=== PATIENT | female | born 1940 | race Caucasian/White ===

== ENCOUNTER 2019-02-02 08:02 | Inpatient (IN) ==
--- NOTE | 2019-01-05 15:41 | PAT Medication Instructions ---
Medication Instructions Date of Service January 05, 2019 Home Medications glimepiride 1 mg PO BIDM metformin 500 mg PO BIDM omeprazole 20 mg PO QAM DO NOT take the morning of surgery glimepiride 1 mg PO BIDM metformin 500 mg PO BIDM Take morning of surgery With a small sip of water, OTHERWISE NOTHING TO EAT OR DRINK AFTER MIDNIGHT: omeprazole 20 mg PO QAM Other Notes If you have any questions please call us at [phone] or [phone] or [phone] or [phone]
--- NOTE | 2019-01-08 13:57 | Anesthesiology Consultation ---
Date of Service January 08, 2019 Assessment & Plan (1) Encounter for pre-operative examination: - PCP: 01/10/19: "No history of cardiorespiratory disease. Here ASA is 3. Perioperatively beta blockers are not indicated, and there are no other preoperative recommendations at this time." - Check BSG AM DOS - Hx lumbar XRT: discussed SAB vs. GA. Chart Review Chart Review: Acceptable Risk for Surgery and Patient seen in Pre Admission Testing Teaching & Discussion Pre-Anesthesia Teaching/Discussion Notes: Instructed NPO after midnight before surgery,except medications with 15 cc of water. Medication instructions provided according to the PAT guidelines. History Surgery Operation Date: 02/02/19 12:05 Proposed Procedures p Right Total Knee Arthroplasty - Zachary Reid MD Height/Weight Height: 5 ft Weight: 77.9 kg Allergies Allergy/AdvReac Type Severity Reaction Status Date / Time hydrocodone [From Vicodin] AdvReac NAUSEA AND Verified 01/02/19 13:40 VOMITING Medications Home Medications Medication Instructions Recorded Confirmed Last Taken glimepiride 1 mg PO BIDM 01/02/19 01/02/19 Unknown metformin 500 mg PO BIDM 01/02/19 01/02/19 Unknown omeprazole 20 mg PO QAM 01/02/19 01/02/19 Unknown Past Medical History Medical History Diabetes mellitus, type 2 NIDDM Heartburn CONTROLLED ON PPI Hiatal hernia Hx of non-Hodgkin's lymphoma SPINAL S/P CHEMO/RADIATION; RECURRENCE S/P CHEMO; "IN REMISSION" Obesity Osteoarthritis Exercise / Class Metabolic Activity II 4-5 Yardwork/Stairs/Walk up hill Past Family History Family History Father Family history of diabetes mellitus Brother Family history of diabetes mellitus Sister Family history of diabetes mellitus Past Surgical History Surgical History History of X2 History of back surgery NO HARDWARE PER PATIENT History of esophagogastroduodenoscopy (EGD) History of partial hysterectomy Hx of cholecystectomy Past Anesthesia History No Hx of Anesthesia Complications and No Family Hx of Anesthesia Complications History of PONV No Hx of PONV and No Hx of Motion Sickness Social History Smoking Status: Never smoker Do You Dip or Chew Tobacco: No Hx Alcohol Use: Yes alcohol intake frequency: holidays/special occasions only Hx Substance Use: No Review of Systems Heartburn controlled on PPI. Patient denies chest pain, shortness of breath, dyspnea on exertion, cough, wheezing, palpitations. Physical Exam Vital Signs VITALS BP 182/80 (136/68 on manual recheck on right) P 78 TEMP 97.8 SP02 95%RA RESP 16 PHYSICAL Full neck and c-spine range of motion. Full TMJ range of motion. TMD 3 finger breaths Mallampati Score 3 Dentition: several missing teeth, full dentures on lower Lungs: clear throughout to auscultation Cardiac: regular rate and rhythm, no murmurs noted Spine: normal Carotid arteries: negative bruit Extremities: no edema Testing Laboratory Results 01/08/19 14:23 01/08/19 14:23 PT 10.0 Seconds (9.0-12.0) 01/08/19 14:23 INR 1.0 (0.9-1.1) 01/08/19 14:23 APTT 28.8 Seconds (21.0-31.0) 01/08/19 14:23 Urine Color Yellow 01/08/19 14:23 Urine Appearance Cloudy (Clear) A 01/08/19 14:23 Urine pH 7.0 (4.5-7.5) 01/08/19 14:23 Ur Specific [place] 1.012 (1.000-1.030) 01/08/19 14:23 Urine Protein Negative (Negative) 01/08/19 14:23 Urine Glucose (UA) Negative (Negative) 01/08/19 14:23 Urine Ketones Negative (Negative) 01/08/19 14:23 Urine Nitrite Positive (Negative) A 01/08/19 14:23 Ur Leukocyte Esterase 3+ (Negative) H 01/08/19 14:23 Urine WBC (Auto) 10-30 /hpf (0-5) H 01/08/19 14:23 Urine RBC (Auto) 0-4 /hpf (0-4) 01/08/19 14:23 U Hyaline Cast (Auto) 0 /lpf (0-5) 01/08/19 14:23 U Epithel Cells (Auto) 10-20 /lpf (0-5) H 01/08/19 14:23 Urine Bacteria (Auto) 4+ (Negative) H 01/08/19 14:23 Blood Type O Negative 01/08/19 14:23 Antibody Screen NEGATIVE 01/08/19 14:23 01/08/19 14:23 Urine Culture - Final Urine,Clean Catch Escherichia coli *Surgeon made aware of abnormal UA* 12/13/18 HGBA1C 5.7% Electrocardiogram Date: 01/08/19 NSR at 61bpm. NS TWA. Chest X-Ray Date: 01/08/19 Findings: + NAD Mild right hemidiaphragmatic elevation.
--- NOTE | 2019-01-08 15:02 | XRay Report ---
XR chest Pre-admission PA/Lat HISTORY: 78 years-old Female pat preoperative exam. No acute chest complaints COMPARISON: None available TECHNIQUE: PA and lateral views of the chest FINDINGS: Cardiomediastinal and hilar silhouettes are within normal limits. Mild right hemidiaphragmatic elevat ion. There is no pneumothorax, pleural effusion, focal airspace consolidation or overt pulmonary janet a. Degenerative changes of the shoulders and spine. Cholecystectomy. IMPRESSION: No acute process. The above report was generated using voice recognition software. It may contain grammatical, syntax o r spelling errors. Electronically signed by: Ehsan Cortes M.D. 01/08/2019 3:01 PM
[2019-01-08 15:40] LABS: Basophils # (auto) 0.03 K/uL (0-0.2); Basophils % (auto) 0.5 %; Eosinophils # (auto) 0.15 K/uL (0-0.5); Eosinophils % (auto) 2.4 %; Hematocrit (blood only) 36.9 % (37-47); Hemoglobin 12.3 g/dL (12.0-16.0); Lymphocytes # (auto) 1.85 K/uL (1.2-3.4); Mean Corpuscular Hgb Conc 33.3 g/dL (32-36); Monocytes # (auto) 0.37 K/uL (0.11-0.59); Monocytes % (auto) 5.8 %; Neutrophils # (auto) 3.98 K/uL (1.4-6.5); Neutrophils % (auto) 62.3 %; Platelet Count 194 K/uL (130-400); RDW Coefficient of Variation 13.3 % (11.5-14.5); RDW Standard Deviation 43.8 fL (36.4-46.3); White Blood Count 6.38 K/uL (4.8-10.8)
[2019-01-08 15:43] LABS: Albumin Level 3.4 gm/dl (3.4-5.0); BUN Creatinine Ratio 10.4 (10-20); Calcium 9.4 mg/dl (8.5-10.1); Creatinine Clr Calc Pharmacy 37.8 ml/min; Est GFR (African American) 52.4; Est GFR (Non-African American) 45.2
[2019-01-08 15:44] LABS: Appearance Urine Cloudy (Clear); Bacteria Urine Automated 4+ (Negative); Bilirubin Urine Negative (Negative); Blood Urine Negative (Negative); Cast Urine Automated 0 /lpf (0-5); Color Urine Yellow; Glucose Urine UA Negative (Negative); Ketones Urine Negative (Negative); Leukocyte Esterase Urine 3+ (Negative); Nitrite Urine Positive (Negative); Protein Urine Negative (Negative); RBC Urine Automated 0-4 /hpf (0-4); Specific Gravity Urine 1.012 (1.000-1.030); Urobilinogen Urine Negative (Negative)
[2019-01-08 15:57] LABS: Partial Thromboplastin Ratio 1.1; Partial Thromboplastin Time 28.8 Seconds (21.0-31.0)
--- NOTE | 2019-01-25 21:00 | History & Physical Report ---
Date of Service January 25, 2019 Assessment & Plan (1) Primary osteoarthritis of right knee: Patient has arthritic changes throughout her knee along with osteonecrosis of the medial femoral condyle. Treatment options discussed. She has failed conservative therapy. She would like to proceed with surgical management. Risks, benefits and alternatives to surgery including but not limited to infection, DVT, pain, stiffness, need for revision surgery, damage to blood vessels, damage to nerves, PE, , were discussed with the patient and they wish to proceed. Plan will be for right total knee arthroplasty. Plan will be for aspirin 81mg BID x 30 days for DVT prophylaxis, plans on inpatient rehab vs senior living facility placement upon discharge from the hospital. All questions were answered. History of Present Illness Chief Complaint: Right knee pain Primary Care Provider: Angel Luis Brooks 78 year old female with PMHx significant for DM2, GERD, history of non-hodgkin's lymphoma in remission presents with chronic right knee pain. Her pain is affecting her ability to carry out daily activities. She previously underwent arthroscopy in 2018 by another provider. Since that time she has been having worsening knee pain. Updated MRI demonstrates osteonecrosis of her medial femoral condyle with an unstable appearing fragment. She has arthritic changes throughout her knee. She has failed conservative measures including NSAIDs and PT. She would like to proceed with right knee replacement. Patient denies headaches, sweats, fevers, chills, double vision, blurred vision, cough, sore throat, dysphagia, chest pain, sob, wheezing, n/v/d/c, numbness, tingling, fatigue, urinary symptoms, mood disorders. ROS positive for right knee pain and stiffness. Allergies Allergy/AdvReac Type Severity Reaction Status Date / Time hydrocodone [From Vicodin] AdvReac NAUSEA AND Verified 01/02/19 13:40 VOMITING Home Medications Home Medications Medication Instructions Recorded Confirmed Type glimepiride 1 mg PO BIDM 01/02/19 01/02/19 History metformin 500 mg PO BIDM 01/02/19 01/02/19 History omeprazole 20 mg PO QAM 01/02/19 01/02/19 History Past Med/Surg History Medical History Diabetes mellitus, type 2 NIDDM Heartburn CONTROLLED ON PPI Hiatal hernia Hx of non-Hodgkin's lymphoma SPINAL S/P CHEMO/RADIATION; RECURRENCE S/P CHEMO; "IN REMISSION" Obesity Osteoarthritis Surgical History History of X2 History of back surgery NO HARDWARE PER PATIENT History of esophagogastroduodenoscopy (EGD) History of partial hysterectomy Hx of cholecystectomy Family History Father Family history of diabetes mellitus Brother Family history of diabetes mellitus Sister Family history of diabetes mellitus Social History Preferred Language: Nepali Communication Ability: Effective Beliefs That Will Affect Care: None Current Living Situation: Alone Other Information That Helps Us Care for You: Yes (LIVES IN TWO HOUSE) Feels Safe at Home: Yes Safety Concerns: Feels Safe At This Time Smoking Status: Never smoker Do You Dip or Chew Tobacco: No Second Hand Exposure: Yes (OCAASIONALLY) Hx Alcohol Use: Yes Hx Substance Use: No Review of Systems All systems reviewed & are unremarkable except as noted in HPI & below Physical Exam Constitutional: well developed and well nourished; no acute distress Eyes: PERRL, conjunctivae normal, anicteric sclerae ENMT: external ear and nose normal, oropharynx normal Neck: trachea midline, no thyromegaly Respiratory: normal respiratory effort, lungs clear to auscultation Cardiovascular: RRR, no murmur, no edema Musculoskeletal: Right knee-Mild effusion, ROM 0-135, ligamentously stable. Medial joint line tenderness with positive Sandie's. Skin: no rashes, warm and dry Neurologic: patellar DTR's 2+ bilat, sensation intact Psychiatric: A+Ox3, euthymic affect Results & Data Laboratory Results Lab Results 01/08/19 01/08/19 01/08/19 Range/Units 14:23 14:23 14:23 WBC 6.38 (4.8-10.8) K/uL RBC 4.10 L (4.2-5.4) M/uL Hgb 12.3 (12.0-16.0) g/dL Hct 36.9 L (37-47) % MCV 90.0 (80-100) fL MCH 30.0 (25-34) pg MCHC 33.3 (32-36) g/dL RDW Std Deviation 43.8 (36.4-46.3) fL RDW Coeff of Emanuel 13.3 (11.5-14.5) % Plt Count 194 (130-400) K/uL MPV 10.0 (7.4-10.4) fL Immature Gran % (Auto) 0.0 % Neut % (Auto) 62.3 % Lymph % (Auto) 29.0 % [place] % (Auto) 5.8 % Eos % (Auto) 2.4 % Baso % (Auto) 0.5 % Immature Gran # (Auto) 0.00 (0.00-0.02) K/uL Neut # (Auto) 3.98 (1.4-6.5) K/uL Lymph # (Auto) 1.85 (1.2-3.4) K/uL Brewster # (Auto) 0.37 (0.11-0.59) K/uL Eos # (Auto) 0.15 (0-0.5) K/uL Baso # (Auto) 0.03 (0-0.2) K/uL PT 10.0 (9.0-12.0) Seconds INR 1.0 (0.9-1.1) APTT 28.8 (21.0-31.0) Seconds PTT Ratio 1.1 Sodium 135 L (136-145) mmol/L Potassium 5.0 (3.5-5.1) mmol/L Chloride 102 (98-107) mmol/L Carbon Dioxide 27 (21-32) mmol/L Anion Gap 6.0 (3-11) BUN 12 (7-18) mg/dl Creatinine 1.17 (0.6-1.2) mg/dl Est Cr Clr Drug Dosing 37.8 ml/min Est GFR ( Amer) 52.4 Est GFR (Non-Af Amer) 45.2 BUN/Creatinine Ratio 10.4 (10-20) Glucose 147 H (70-99) mg/dl Calcium 9.4 (8.5-10.1) mg/dl Albumin 3.4 (3.4-5.0) gm/dl Urine Color Urine Appearance (Clear) Urine pH (4.5-7.5) Ur Specific [place] (1.000-1.030) Urine Protein (Negative) Urine Glucose (UA) (Negative) Urine Ketones (Negative) Urine Blood (Negative) Urine Nitrite (Negative) Urine Bilirubin (Negative) Urine Urobilinogen (Negative) Ur Leukocyte Esterase (Negative) Urine WBC (Auto) (0-5) /hpf Urine RBC (Auto) (0-4) /hpf U Hyaline Cast (Auto) (0-5) /lpf U Epithel Cells (Auto) (0-5) /lpf Urine Bacteria (Auto) (Negative) Blood Type Antibody Screen 01/08/19 01/08/19 Range/Units 14:23 14:23 WBC (4.8-10.8) K/uL RBC (4.2-5.4) M/uL Hgb (12.0-16.0) g/dL Hct (37-47) % MCV (80-100) fL MCH (25-34) pg MCHC (32-36) g/dL RDW Std Deviation (36.4-46.3) fL RDW Coeff of Emanuel (11.5-14.5) % Plt Count (130-400) K/uL MPV (7.4-10.4) fL Immature Gran % (Auto) % Neut % (Auto) % Lymph % (Auto) % [place] % (Auto) % Eos % (Auto) % Baso % (Auto) % Immature Gran # (Auto) (0.00-0.02) K/uL Neut # (Auto) (1.4-6.5) K/uL Lymph # (Auto) (1.2-3.4) K/uL [place] # (Auto) (0.11-0.59) K/uL Eos # (Auto) (0-0.5) K/uL Baso # (Auto) (0-0.2) K/uL PT (9.0-12.0) Seconds INR (0.9-1.1) APTT (21.0-31.0) Seconds PTT Ratio Sodium (136-145) mmol/L Potassium (3.5-5.1) mmol/L Chloride (98-107) mmol/L Carbon Dioxide (21-32) mmol/L Anion Gap (3-11) BUN (7-18) mg/dl Creatinine (0.6-1.2) mg/dl Est Cr Clr Drug Dosing ml/min Est GFR ( Amer) Est GFR (Non-Af Amer) BUN/Creatinine Ratio (10-20) Glucose (70-99) mg/dl Calcium (8.5-10.1) mg/dl Albumin (3.4-5.0) gm/dl Urine Color Yellow Urine Appearance Cloudy A (Clear) Urine pH 7.0 (4.5-7.5) Ur Specific [place] 1.012 (1.000-1.030) Urine Protein Negative (Negative) Urine Glucose (UA) Negative (Negative) Urine Ketones Negative (Negative) Urine Blood Negative (Negative) Urine Nitrite Positive A (Negative) Urine Bilirubin Negative (Negative) Urine Urobilinogen Negative (Negative) Ur Leukocyte Esterase 3+ H (Negative) Urine WBC (Auto) 10-30 H (0-5) /hpf Urine RBC (Auto) 0-4 (0-4) /hpf U Hyaline Cast (Auto) 0 (0-5) /lpf U Epithel Cells (Auto) 10-20 H (0-5) /lpf Urine Bacteria (Auto) 4+ H (Negative) Blood Type O Negative Antibody Screen NEGATIVE Diagnostic Findings MRI and radiographs obtained of right knee which demonstrates osteonecrosis of the medial femoral condyle, the fragment appears unstable. Arthritic changes of the medial femoral condyle and patellofemoral joint.
[~2019-02-02 08:02] MED LIST: ACETAMINOPHEN 500 MG TAB PO SCH; BUPIVACAINE 0.5 % 5 MG/1 ML PF 10ML VIAL ONE; BUPIVACAINE/EPINEPHRINE 0.25% 1:200,000 30 ML VIAL ONE; CEFAZOLIN 2000MG 2,000 MG/15 ML SYR IV SCH; CeleBREX 200 MG CAP PO SCH; DEXAMETHASONE SOD INJ 4 MG/ML VIAL ONE; FAMOTIDINE 20 MG TAB PO SCH; LIDOCAINE HCL 2% 2 ML VIAL/AMP(20MG/ML) INFIL ONE; LR 500ML BOLUS IV SCH; LR 500ML BOLUS, THEN 15ML/HR IV SCH; METOCLOPRAMIDE HCL 10 MG TABLET PO SCH; MIDAZOLAM HCL 1 MG/ML 2ML VIAL ONE; PROPOFOL IV EMULSION 10 MG/ML 20 ML VIAL IV ONE; ROPIVACAINE 0.5% HCL/PF 150 MG, BUPIVACAINE 0.5% MPF 30 ML, EPINEPHrine 30MG/30ML (OR U... INSTIL SCH; TRANEXAMIC ACID 1,000 MG **IV Intra-op IV SCH; TRANEXAMIC ACID 1,000 MG **IV Pre-op IV SCH; dexAMETHasone 4 MG TAB PO SCH; fentaNYL citrate 100 MCG/2 ML VIAL ONE
[2019-02-02] MEDS ORDERED: ORTHO JOINT ANESTHETIC ONE (08:40)
[2019-02-02] MEDS ORDERED: BACITRACIN INJ 50,000 UNIT VIAL ONE (08:40)
--- NOTE | 2019-02-02 08:42 | History & Physical Bridge Note ---
Date of Service February 02, 2019 History & Physical Bridge Note I have examined the patient, reviewed the History & Physical and in the interval since the performance of the History & Physical I have noted the following changes of clinical significance: no changes noted
[2019-02-02] MEDS ORDERED: PROPOFOL IV EMULSION 10 MG/ML 20 ML VIAL IV ONE ×2 (08:48→11:02)
[2019-02-02] MEDS ORDERED: LIDOCAINE HCL 2% 2 ML VIAL/AMP(20MG/ML) INFIL ONE ×2 (08:48→11:02)
[2019-02-02] MEDS ORDERED: MIDAZOLAM HCL 1 MG/ML 2ML VIAL ONE (08:49)
[2019-02-02] MEDS ORDERED: fentaNYL citrate 100 MCG/2 ML VIAL ONE (08:49)
--- NOTE | 2019-02-02 10:58 | Operative Report ---
Post Operative Report Pre & Post Diagnosis Operation Date: 02/02/19 10:20 Pre-Op Diagnosis: Unilateral Primary Osteoarthritis, Right Knee, OCD medial femoral condyle Post-Op Diagnosis: Unilateral Primary Osteoarthritis, Right Knee, OCD medial femoral condyle Procedure Operation Date: 02/02/19 10:20 Actual Procedures p Right Total Knee Arthroplasty(Right) - Zachary Reid MD Surgeon Zachary Reid MD Repairer Screen Crusher Too Osborne PA-C Estimated Blood Loss 20 Findings Consistent with Post-Op Diagnosis Specimens Bone and tissue Drains 2 Hemovac Anesthesia Type Spinal MAC Complications none Disposition Accompanied Patient To Recovery: No Disposition: Recovery Room Indications The patient is a 78-year-old female who has developed a unstable on osteochondral defect of the medial femoral condyle with concomitant arthritic change in the medial compartment. She is failed conservative measures including injection, anti-inflammatories, rehab. Given her age I recommended a total knee arthroplasty for treatment both of the arthritic change as well as for the unstable medial femoral condyle OCD Description of Procedure Risks benefits and alternatives of surgery including but not limited to infection, DVT, pain, stiffness, need for surgery, damage to blood vessels, damage to nerves or risks of anesthesia were discussed with the patient and they wished to proceed. The patient was identified and the laterality was confirmed and marked. They received a preoperative antibiotic as well as a spinal anesthetic and an abductor canal block. A well-padded tourniquet was applied and then the limb was prepped and draped in standard manner with ChloraPrep. The limb was exsanguinated and the tourniquet was inflated. I made a standard anterior incision. I sharply incised the skin then utilized Bovie electrocautery to achieve hemostasis. I made a medial parapatellar arthrotomy and mobilized the patella laterally. I then excised the anterior horns of the medial and lateral meniscus as well as the infrapatellar fat pad. I elevated a portion of the MCL off of the tibia. I then pinned into place a patient-matched distal femoral cutting guide and made my distal femoral resection. I then pinned into place the 5 in 1 femoral cutting guide. I made my anterior, posterior and chamfer cuts. I then excised the cruciates and the remaining portions of the menisci. I then pinned into place a patient- matched tibial cutting guide and made my tibial resection. I then pinned into place the tibial plate a utilizing alignment ifrah to confirm rotation. I then cut for the post. Utilizing a lamina duplicating machine mechanic and I then removed posterior osteophytes off the femur. I then placed a trial femur into position and cut for the trochlear component. I then sequentially trialed to size the polyethylene until there was good soft tissue balancing and range of motion. I then prepared the patella with a freehand cut utilizing sagittal saw. I sized and drilled for the patella. There was good tracking to the patella no lateral release was needed. All the trial components were removed. The deep tissues were anesthetized with an ortho mix solution. Then with Simplex HV with gentamicin cement, I cemented my definitive components. Definitive components, [employer]hew [place] 2: Femur 4 Tibia 3 Poly 9 Patella 32 oval A betadine soak was performed. A deep drain was placed. The arthrotomy was closed with interrupted #1 Vicryl suture subcutaneous tissue was closed with interrupted 2-0 Vicryl suture. The skin was closed with with nilay. An Acticoat and Corrine dressing were placed. Sterile dressings were applied. All needle and sponge counts were correct at the end of the procedure patient was transferred to the PACU in stable condition without apparent complication. The PA-C was necessary for assistance with procedure for assistance in positioning, prepping, draping, retraction and closure. I attest to the content of the Intraoperative Record and any orders documented therein. Any exceptions are noted below.
[2019-02-02] MEDS ORDERED: ONDANSETRON INJ 2 MG/ML 2 ML VIAL ONE (11:02)
[2019-02-02] MEDS ORDERED: fentaNYL citrate 100 MCG/2 ML VIAL IV PRN (11:37)
[2019-02-02] MEDS ORDERED: PROMETHAZINE HCL 6.25 MG in SODIUM CHLORIDE 0.9% 50 ML IV PRN (11:37)
[2019-02-02] MEDS ORDERED: ONDANSETRON INJ 2 MG/ML 2 ML VIAL IV PRN ×2 (11:37→13:29)
[2019-02-02] MEDS ORDERED: ATROPINE SULFATE 0.1 MG/ML 10ML SYR IV PRN (11:37)
[2019-02-02] MEDS ORDERED: ePHEDrine sulfate 50 MG/ML AMP IV PRN (11:37)
--- NOTE | 2019-02-02 12:21 | XRay Report ---
RIGHT KNEE 2 VIEWS History: Right total knee arthroplasty. Degenerative arthritis. Postop. FINDINGS: The patient is status post a right total knee arthroplasty. The hardware is intact. No frac ture or dislocation. Skin nilay and surgical drains are in place. IMPRESSION: Right total knee arthroplasty. No evidence for hardware complication. Electronically signed by: Nicholas Berry M.D. 02/02/2019 12:20 PM
[2019-02-02] MEDS ORDERED: HYDROmorphone INJ 0.5 MG/0.5 ML SYR IV PRN (13:29)
[2019-02-02] MEDS ORDERED: BISACODYL 10 MG SUPP PR PRN (13:29)
[2019-02-02] MEDS ORDERED: ALUMINUM/MAGNESIUM SUSP 30 ML UDC PO PRN (13:29)
[2019-02-02] MEDS ORDERED: MAGNESIUM HYDROXIDE SUSP 30 ML UDC PO PRN (13:29)
[2019-02-02] MEDS ORDERED: NALOXONE HCL 0.4 MG/1 ML VIAL/CARP IV PRN (13:29)
--- NOTE | 2019-02-02 13:54 | Anesthesiology Progress Note ---
Date of Service February 02, 2019 Anesthesia Post Procedure Vital Signs Vital Signs: Temp Pulse Pulse Resp BP Pulse Ox 02/02/19 13:10 54 L 20 128/64 97 02/02/19 13:00 79 16 142/64 H 98 02/02/19 12:50 36.3 C L 56 L 17 137/68 98 02/02/19 12:40 60 19 128/48 L 93 02/02/19 12:30 53 L 17 122/59 L 97 02/02/19 12:20 56 L 19 123/66 98 02/02/19 12:10 36.3 C L 54 L 13 123/54 L 99 02/02/19 12:00 62 9 L 143/61 H 99 02/02/19 11:50 61 23 127/56 L 100 02/02/19 11:40 60 16 130/54 L 100 02/02/19 11:33 36.1 C L 66 17 141/63 H 100 02/02/19 08:54 36.8 C 63 20 162/56 H 96 Transfer of Care Handoff Completed per policy Notes Mental Status: alert / awake / arousable Patient Amnestic to Procedure: Yes Nausea / Vomiting: adequately controlled Pain: adequately controlled Airway Patency, RR, SpO2: stable & adequate BP & HR: stable & adequate Hydration State: stable & adequate Neuraxial Anesthesia: was administered and sensory block is resolving Anesthetic Complications: no major complications apparent
[2019-02-02] MEDS ORDERED: SODIUM CHLORIDE 0.9% 1000ML 1,000 ML IV SCH (14:00)
[2019-02-02] MEDS ORDERED: PHARMACY GLYCEMIC MGMT CONSULT PRN (14:25)
[2019-02-02] MEDS ORDERED: NovoLIN-N (NPH) PER UNIT CHARGE SQ ONE (15:00)
--- NOTE | 2019-02-02 15:22 | Pharmacy Report ---
Glycemic Control Consultation - Date of Service February 02, 2019 - Scope Scope: Glycemic Pharmacist consulted by Too Osborne on 02/02/19 for glycemic control and to write orders per [facility] inpatient glycemic control protocol - Objective Weight: 77.292 kg Accuchecks BSG (last 24hrs): 02/02/19 02/02/19 08:47 12:08 POC Glucose 110 H 129 H - Recent Pertinent Medications Outpatient Anti-diabetic Regimen: * Metformin 500 mg BID * Glimepiride 1 mg BID * A1c = ordered for 02/03/19 with AM labs Risk Factors for Insulin Resistance: * Steroids: Dexamethasone 8 mg PO and 4 mg IV preop. * Infection: Ancef 1 gm IV q8h x 2 doses post op. * IVF: NS @ 100 ml/hr * Recent Surgery: R TKA - 02/02/19 * Diet: T2DM - Assessment & Plan Assessment & Plan: ASSESSMENT: * 78 y/o F who is postop R TKA today. Patient with Type 2 diabetes maintained on oral Metformin and Glimepiride at home. * Oral agents are not recommended for inpatient use d/t drug interactions, changing PO intake, and difficulty titrating for acute hyper/hypoglycemia. ADA recommends re-initiating outpatient oral agents 1-2 days prior to discharge if/when appropriate if they were held on admission. * Will hold oral agents for admission and utilize SQ basal bolus insulin regimen which is the recommended regimen for inpatient glycemic control. Will initiate weight based insulin dosing for insulin ayde patient and titrate based on BSG trends. * Based on lunch BSG, which was only 129, weight based stress of ~2 was used for the NPH dose of 30 units this afternoon. * NPH at HS based on scale. If BSG greater than 180, then will give 10 units of NPH. * Novolog parameters were ordered based on weight based stress of 3. PLAN FOR INPATIENT GLYCEMIC CONTROL: * Holding outpatient oral diabetes medications * Basal insulin * NPH 30 units SQ this afternoon then HS based on scale as below: - if BSG less than 180 = give 0 units - if BSG 180 or greater = give 10 units * Bolus insulin * NovoLog per scale ACHS or Q6hrs while NPO * Goal Range: Low 120 mg/dL - High 150 mg/dL * Correction Factor: 20 mg/dL/unit * Nutritional / Prandial insulin per carb ratio of 1 unit per 7 grams CHO consumed * Please note that the plan above was derived based on current level of insulin resistance and hospital stress. These recommendations are appropriate for inpatient admission only. Plan of care upon discharge will need to be reassessed to avoid potential outpatient hypo/hyperglycemia. Thank you.
[2019-02-02] MEDS ORDERED: GLIMEPIRIDE 2 MG TAB PO SCH (17:00)
[2019-02-02] MEDS: FERROUS GLUCONATE 324 MG TAB PO SCH (17:47)
[2019-02-02] MEDS: ACETAMINOPHEN 500 MG TAB PO SCH (17:47)
[2019-02-02] MEDS: INSULIN ASPART 100 UNITS/ML 3 ML PEN SC SCH ×2 (17:48→21:10)
[2019-02-02] MEDS: CEFAZOLIN 1000MG 1,000 MG/7.5 ML SYR IV SCH (18:11)
[2019-02-02] MEDS: OXYCODONE HCL IR 5 MG TAB (IMMEDIATE RELEASE) PO PRN (20:05)
[2019-02-02] MEDS ORDERED: NovoLIN-N (NPH) PER UNIT CHARGE SQ SCH (21:00)
[2019-02-02] MEDS: DOCUSATE SODIUM 100 MG CAP PO SCH (21:03)
[2019-02-02] MEDS: ASPIRIN 81 MG ECTAB PO SCH (21:04)
[2019-02-02] MEDS: SENNA 8.6 MG TAB PO SCH (21:05)
[2019-02-03] MEDS: INSULIN ASPART 100 UNITS/ML 3 ML PEN SC SCH ×6 (01:19→21:07)
[2019-02-03] MEDS: CEFAZOLIN 1000MG 1,000 MG/7.5 ML SYR IV SCH (02:33)
[2019-02-03] MEDS: ACETAMINOPHEN 500 MG TAB PO SCH ×3 (05:47→21:05)
[2019-02-03 07:46] LABS: Hematocrit (blood only) 30.9 % (37-47); Hemoglobin 10.6 g/dL (12.0-16.0); Mean Corpuscular Hgb Conc 34.3 g/dL (32-36); Mean Corpuscular Volume 86.3 fL (80-100); Mean Platelet Volume 9.8 fL (7.4-10.4); Platelet Count 159 K/uL (130-400); RDW Coefficient of Variation 12.5 % (11.5-14.5); RDW Standard Deviation 39.8 fL (36.4-46.3); Red Blood Count 3.58 M/uL (4.2-5.4); White Blood Count 11.46 K/uL (4.8-10.8)
[2019-02-03 08:11] LABS: Estimated Average Glucose 134 mg/dl; Hemoglobin A1C 6.3 % (4.5-5.6)
[2019-02-03 08:17] LABS: Est GFR (African American) 50.8; Est GFR (Non-African American) 43.9; Potassium 4.8 mmol/L (3.5-5.1)
[2019-02-03 08:18] LABS: BUN Creatinine Ratio 16.3 (10-20); Calcium 8.7 mg/dl (8.5-10.1); Creatinine Clr Calc Pharmacy 36.7 ml/min
[2019-02-03] MEDS: ASPIRIN 81 MG ECTAB PO SCH ×2 (08:26→20:19)
[2019-02-03] MEDS: MULTIVITAMIN TAB PO SCH (08:26)
[2019-02-03] MEDS: FERROUS GLUCONATE 324 MG TAB PO SCH ×2 (08:26→17:07)
[2019-02-03] MEDS: OXYCODONE HCL IR 5 MG TAB (IMMEDIATE RELEASE) PO PRN (08:26)
[2019-02-03] MEDS: PANTOprazole 40 MG TAB PO SCH (08:26)
[2019-02-03] MEDS: DOCUSATE SODIUM 100 MG CAP PO SCH ×2 (08:26→20:19)
--- NOTE | 2019-02-03 08:32 | Orthopedic Progress Note ---
Date of Service February 03, 2019 Assessment & Plan (1) Status post right knee replacement: 78 yo female stable POD #1 s/p right TKA 1. Med management 2. DVT prophylaxis- ASA, SCDs 3. PT/OT 4. D/C planning- pt interested in [facility] rehab Subjective Pt resting in bed, pain controlled, denies complaints Physical Exam Physical Exam: Toes mobile, N/V/I, dressing and drain in place, GONZALES in place Results & Data Vital Signs (Past 12 Hours) Vital Signs Temp Pulse Pulse Resp BP Pulse Ox 02/03/19 06:55 36.6 C 53 L 18 142/71 H 95 02/03/19 03:41 36.1 C L 50 L 18 146/71 H 97 02/02/19 23:19 36.2 C L 51 L 17 129/71 96 Laboratory Results 02/03/19 02/03/19 02/03/19 Range/Units 08:01 07:28 07:28 WBC (4.8-10.8) K/uL RBC (4.2-5.4) M/uL Hgb (12.0-16.0) g/dL Hct (37-47) % MCV (80-100) fL MCH (25-34) pg MCHC (32-36) g/dL RDW Std Deviation (36.4-46.3) fL RDW Coeff of Emanuel (11.5-14.5) % Plt Count (130-400) K/uL MPV (7.4-10.4) fL Sodium 130 L (136-145) mmol/L Potassium 4.8 (3.5-5.1) mmol/L Chloride 100 (98-107) mmol/L Carbon Dioxide 23 (21-32) mmol/L Anion Gap 7.0 (3-11) BUN 20 H (7-18) mg/dl Creatinine 1.20 (0.6-1.2) mg/dl Est Cr Clr Drug Dosing 36.7 ml/min Est GFR ( Amer) 50.8 Est GFR (Non-Af Amer) 43.9 BUN/Creatinine Ratio 16.3 (10-20) Glucose 142 H (70-99) mg/dl POC Glucose 145 H (70-99) Estimat Average Glucose 134 mg/dl Hemoglobin A1c 6.3 H (4.5-5.6) % Calcium 8.7 (8.5-10.1) mg/dl 02/03/19 02/03/19 02/03/19 Range/Units 07:28 03:40 00:00 WBC 11.46 H (4.8-10.8) K/uL RBC 3.58 L (4.2-5.4) M/uL Hgb 10.6 L (12.0-16.0) g/dL Hct 30.9 L (37-47) % MCV 86.3 (80-100) fL MCH 29.6 (25-34) pg MCHC 34.3 (32-36) g/dL RDW Std Deviation 39.8 (36.4-46.3) fL RDW Coeff of Emanuel 12.5 (11.5-14.5) % Plt Count 159 (130-400) K/uL MPV 9.8 (7.4-10.4) fL Sodium (136-145) mmol/L Potassium (3.5-5.1) mmol/L Chloride (98-107) mmol/L Carbon Dioxide (21-32) mmol/L Anion Gap (3-11) BUN (7-18) mg/dl Creatinine (0.6-1.2) mg/dl Est Cr Clr Drug Dosing ml/min Est GFR ( Amer) Est GFR (Non-Af Amer) BUN/Creatinine Ratio (10-20) Glucose (70-99) mg/dl POC Glucose 113 H 148 H (70-99) Estimat Average Glucose mg/dl Hemoglobin A1c (4.5-5.6) % Calcium (8.5-10.1) mg/dl 02/02/19 02/02/19 02/02/19 Range/Units 20:38 17:32 12:08 WBC (4.8-10.8) K/uL RBC (4.2-5.4) M/uL Hgb (12.0-16.0) g/dL Hct (37-47) % MCV (80-100) fL MCH (25-34) pg MCHC (32-36) g/dL RDW Std Deviation (36.4-46.3) fL RDW Coeff of Emanuel (11.5-14.5) % Plt Count (130-400) K/uL MPV (7.4-10.4) fL Sodium (136-145) mmol/L Potassium (3.5-5.1) mmol/L Chloride (98-107) mmol/L Carbon Dioxide (21-32) mmol/L Anion Gap (3-11) BUN (7-18) mg/dl Creatinine (0.6-1.2) mg/dl Est Cr Clr Drug Dosing ml/min Est GFR ( Amer) Est GFR (Non-Af Amer) BUN/Creatinine Ratio (10-20) Glucose (70-99) mg/dl POC Glucose 231 H 258 H 129 H (70-99) Estimat Average Glucose mg/dl Hemoglobin A1c (4.5-5.6) % Calcium (8.5-10.1) mg/dl 02/02/19 Range/Units 08:47 WBC (4.8-10.8) K/uL RBC (4.2-5.4) M/uL Hgb (12.0-16.0) g/dL Hct (37-47) % MCV (80-100) fL MCH (25-34) pg MCHC (32-36) g/dL RDW Std Deviation (36.4-46.3) fL RDW Coeff of Emanuel (11.5-14.5) % Plt Count (130-400) K/uL MPV (7.4-10.4) fL Sodium (136-145) mmol/L Potassium (3.5-5.1) mmol/L Chloride (98-107) mmol/L Carbon Dioxide (21-32) mmol/L Anion Gap (3-11) BUN (7-18) mg/dl Creatinine (0.6-1.2) mg/dl Est Cr Clr Drug Dosing ml/min Est GFR ( Amer) Est GFR (Non-Af Amer) BUN/Creatinine Ratio (10-20) Glucose (70-99) mg/dl POC Glucose 110 H (70-99) Estimat Average Glucose mg/dl Hemoglobin A1c (4.5-5.6) % Calcium (8.5-10.1) mg/dl
[2019-02-03] MEDS ORDERED: METFORMIN HCL 500 MG TAB PO SCH (17:00)
[2019-02-03] MEDS: SENNA 8.6 MG TAB PO SCH (20:19)
[2019-02-04] MEDS: OXYCODONE HCL IR 5 MG TAB (IMMEDIATE RELEASE) PO PRN ×2 (00:32→14:21)
[2019-02-04] MEDS: ACETAMINOPHEN 500 MG TAB PO SCH ×3 (05:57→21:27)
[2019-02-04] MEDS: MULTIVITAMIN TAB PO SCH (08:16)
[2019-02-04] MEDS: DOCUSATE SODIUM 100 MG CAP PO SCH ×2 (08:16→21:27)
[2019-02-04] MEDS: PANTOprazole 40 MG TAB PO SCH (08:16)
[2019-02-04] MEDS: ASPIRIN 81 MG ECTAB PO SCH ×2 (08:16→21:27)
[2019-02-04] MEDS: FERROUS GLUCONATE 324 MG TAB PO SCH ×2 (08:16→17:34)
[2019-02-04] MEDS: INSULIN ASPART 100 UNITS/ML 3 ML PEN SC SCH ×4 (08:18→20:39)
--- NOTE | 2019-02-04 09:01 | Pharmacy Report ---
Pharmacy Glycemic Short Note 2 - Date of Service February 04, 2019 - Glycemic Short BSG Results (Last 24 hours): 02/03/19 02/03/19 02/03/19 12:07 17:16 20:42 POC Glucose 206 H 127 H 185 H 02/04/19 08:04 POC Glucose 101 H ASSESSMENT: * BSGs with reasonable control over the previous 24hrs: [phone]. She did have some hyperglycemia with lunch yesterday, likely 2/2 to carb-heavy breakfast. No acute changes in insulin requirements are anticipated. PLAN FOR INPATIENT GLYCEMIC CONTROL: * Hold outpatient oral diabetes medications * Basal insulin * none indicated at this point in time * Bolus insulin * NovoLog per scale ACHS or Q6hrs while NPO * Goal Range: Low 120 mg/dL - High 150 mg/dL * Correction Factor: 20 mg/dL/unit * Nutritional / Prandial insulin per carb ratio of 1 unit per 7 grams CHO consumed
--- NOTE | 2019-02-04 09:24 | Orthopedic Progress Note ---
Date of Service February 04, 2019 Assessment & Plan (1) Status post right knee replacement: 78 yo female stable POD #2 s/p right TKA 1. Med management 2. DVT prophylaxis- ASA, SCDs 3. PT/OT 4. D/C planning- referral made to [facility] rehab, insurance approval won't be before Tuesday Subjective Pt resting in bed, pain controlled, denies complaints Physical Exam Physical Exam: GONZALES dressing in place, toes mobile, NVI, calves soft, nontender Results & Data Vital Signs (Past 12 Hours) Vital Signs Temp Pulse Pulse Resp BP Pulse Ox 02/04/19 07:14 36.3 C L 53 L 16 138/68 99 02/03/19 23:23 36.4 C L 50 L 17 123/56 L 97 Laboratory Results 02/04/19 02/03/19 02/03/19 Range/Units 08:04 20:42 17:16 POC Glucose 101 H 185 H 127 H (70-99) 02/03/19 Range/Units 12:07 POC Glucose 206 H (70-99)
[2019-02-04] MEDS: SENNA 8.6 MG TAB PO SCH (21:27)
[2019-02-05] MEDS: OXYCODONE HCL IR 5 MG TAB (IMMEDIATE RELEASE) PO PRN ×2 (01:55→13:48)
[2019-02-05] MEDS: ACETAMINOPHEN 500 MG TAB PO SCH ×3 (06:17→21:04)
--- NOTE | 2019-02-05 07:29 | Orthopedic Progress Note ---
Date of Service February 05, 2019 Assessment & Plan (1) Status post right knee replacement: 78 yo female stable POD #3 s/p right TKA 1. Med management 2. DVT prophylaxis- ASA, SCDs 3. PT/OT 4. D/C planning- referral made to [facility] rehab pending insurance approval. Subjective Pt resting in bed, pain better controlled today compared to yesterday, denies complaints. No chest pain, sob, dizziness, fever/chills. Review of Systems Review of Systems: All systems reviewed & are unremarkable except as noted in HPI & below Physical Exam Physical Exam: Right knee swollen, GONZALES in place. Hemovac site dressing in place, c/d/i. No erythema or drainage. No calf tenderness. Toes are mobile. Sensation and N/V status intact. Results & Data Vital Signs (Past 12 Hours) Vital Signs Temp Pulse Resp BP Pulse Ox 02/05/19 06:50 36.6 C 63 18 126/73 97 02/04/19 23:01 36.6 C 63 20 147/67 H 98
--- NOTE | 2019-02-05 07:40 | Anesthesiology Progress Note ---
Date of Service February 05, 2019 Anesthesia Post Procedure Vital Signs Vital Signs: Temp Pulse Resp BP Pulse Ox 02/05/19 06:50 36.6 C 63 18 126/73 97 02/04/19 23:01 36.6 C 63 20 147/67 H 98 02/04/19 15:41 36.6 C 56 L 18 113/71 95 Pain Intensity Right Knee: Pain Intensity: 5 Notes Mental Status: alert / awake / arousable and participated in evaluation Nausea / Vomiting: adequately controlled Pain: adequately controlled Airway Patency, RR, SpO2: stable & adequate BP & HR: stable & adequate Hydration State: stable & adequate Anesthetic Complications: no major complications apparent and Pt Satisfied with anesthetic care
[2019-02-05] MEDS: MULTIVITAMIN TAB PO SCH (08:20)
[2019-02-05] MEDS: PANTOprazole 40 MG TAB PO SCH (08:20)
[2019-02-05] MEDS: ASPIRIN 81 MG ECTAB PO SCH ×2 (08:20→21:03)
[2019-02-05] MEDS: DOCUSATE SODIUM 100 MG CAP PO SCH ×2 (08:20→21:03)
[2019-02-05] MEDS: FERROUS GLUCONATE 324 MG TAB PO SCH ×2 (08:20→17:33)
[2019-02-05] MEDS: INSULIN ASPART 100 UNITS/ML 3 ML PEN SC SCH ×4 (08:38→21:05)
[2019-02-05] MEDS: SODIUM CHLORIDE 0.9% 1000ML 1,000 ML IV SCH (15:28)
[2019-02-05 15:45] LABS: Basophils # (auto) 0.02 K/uL (0-0.2); Basophils % (auto) 0.2 %; Eosinophils # (auto) 0.16 K/uL (0-0.5); Eosinophils % (auto) 1.4 %; Hematocrit (blood only) 30.6 % (37-47); Hemoglobin 10.3 g/dL (12.0-16.0); Immature Granulocytes # (auto) 0.03 K/uL (0.00-0.02); Immature Granulocytes % (auto) 0.3 %; Lymphocytes # (auto) 2.92 K/uL (1.2-3.4); Lymphocytes % (auto) 26.1 %; Mean Corpuscular Volume 87.9 fL (80-100); Monocytes # (auto) 1.22 K/uL (0.11-0.59); Monocytes % (auto) 10.9 %; Neutrophils # (auto) 6.85 K/uL (1.4-6.5); Neutrophils % (auto) 61.1 %; Platelet Count 201 K/uL (130-400); RDW Coefficient of Variation 13.6 % (11.5-14.5); RDW Standard Deviation 44.1 fL (36.4-46.3); Red Blood Count 3.48 M/uL (4.2-5.4)
[2019-02-05 15:49] LABS: Mean Corpuscular Hgb Conc 33.7 g/dL (32-36)
[2019-02-05 15:54] LABS: BUN Creatinine Ratio 12.9 (10-20); Blood Urea Nitrogen 17 mg/dl (7-18); Calcium 8.8 mg/dl (8.5-10.1); Carbon Dioxide 24 mmol/L (21-32); Chloride 101 mmol/L (98-107); Creatinine Clr Calc Pharmacy 34.1 ml/min; Est GFR (African American) 46.6; Est GFR (Non-African American) 40.2; Glucose 156 mg/dl (70-99); Magnesium 2.6 mg/dl (1.8-2.4); Potassium 4.4 mmol/L (3.5-5.1); Sodium 132 mmol/L (136-145)
[2019-02-05 16:05] LABS: Troponin I < 0.015 ng/ml (0-0.045)
--- NOTE | 2019-02-05 16:06 | Hospitalist Consultation ---
Date of Consultation February 05, 2019 Assessment & Plan (1) Syncope: Patient appears to have had a vagal event after receiving a Dulcolax suppository EKG shows nonspecific ST changes Echocardiogram is pending Troponin is negative Will trend troponin X 2 more q8h Repeat EKG in the morning Continue NSS at 75 mL/hr Monitor on telemetry (2) Nonspecific ST-T wave electrocardiographic changes: Trend Troponin q8h Repeat EKG in the morning No chest pain or tightness No arrhythmias on monitor at time of event Transfer to telemetry to follow (3) Diabetes mellitus type 2 in obese: Glimepiride and metformin at home Continue diabetic consult with pharmacy initiated by orthopedic group Continue BSG ACHS with sliding scale insulin BSG at time of syncopal event was 160 Continue diabetic diet (4) Status post right knee replacement: POD#[address] Reid No complications at time of surgery EBL 20 mLs Further management per ortho (5) DVT prophylaxis: Chemical prophylaxis per orthopedics Currently receiving aspirin 81 mg p.o. twice daily AURELIANO hose Ambulate as tolerated per orthopedic orders Discussed case with Dr. Keller. Please refer to her addendum for further recommendations. Supervising Physician Co-Signing Physician Notes PA Supervision Note: I personally saw and examined the patient. I verified all adam points and agree with VIKY Ramirez with the following exceptions and/or additions: Pt recalls sitting on the toilet, straining to have a BM after being constipated for 5 days. She felt lightheaded and dizzy, then recalls waking up in the bed. A Code Purple was called as the pt became unresponsive but had a pulse, had a good BP and HR during the episode. She denies any associated CP or SOB. Currently she feels fine, has minimal knee pain, denies CP or SOB, no abd pain, no headache or lightheadedness. History reviewed as above ROS otherwise negative Vitals reviewed AAOx3 RRR no mgr CTAB no wcr, breathing unlabored Abd +BS soft NT ND Ext Rt knee with dressing c/d/i, ice pack in place, no calf tenderness, no edema 78 yo F here with Rt TKA, now s/p syncope episode while straining ot have a BM with constipation. Likely Vasovagal in nature. ECHO without any significant abnormalities ECG with abnormalities but unchanged from previous, troponin neg x 1, labs stable, follow serial trops -repeat ECG in AM, monitor on tele Add Miralax now and then daily in the AM to prevent further strain with BMs -check orthostatic vital signs If labs stable, troponin ok, and doing well, could be medically stable for dc to rehab tomorrow History of Present Illness Reason for Consultation: Syncopal episode Requesting Physician: Dr. Reid Attending Physician: Zachary Reid MD History of Present Illness Is a 78-year-old female that presented for elective right total knee arthroplasty on 02/02/[address] Reid. She was being prepared for discharge today to a rehab facility in [place] and prior to discharge had a syncopal episode. The patient had received a Dulcolax suppository and during the process of trying to evacuate had change of mental status. She had no fall. She has no recollection of how she got to the bathroom or being return to the bed. Vital signs at the time of the episode showed a blood pressure of 148, heart rate of 66, temperature of 37.0 Celsius, O2 saturation of 100% on 2 L by nasal cannula, BSG of 160. 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 She has no history of arrhythmia or other cardiac disease. The patient is unsure of what her previous echocardiogram revealed or the extent of her cardiomyopathy. EKG shows normal sinus rhythm. Echocardiogram is pending. The patient denies any chest pain or tightness. She had no dyspnea. She had no pleuritic pain. She denies any tachyarrhythmia or palpitations. She denies headache. No blurred vision. No diplopia. The patient had no other acute complaints other than generalized weakness. Allergies Allergy/AdvReac Type Severity Reaction Status Date / Time hydrocodone [From Vicodin] AdvReac NAUSEA AND Verified 02/02/19 08:52 VOMITING Home Medications Home Medications Medication Instructions Recorded Confirmed Type glimepiride 1 mg PO BIDM 01/02/19 02/02/19 History metformin 500 mg PO BIDM 01/02/19 02/02/19 History omeprazole 20 mg PO QAM 01/02/19 02/02/19 History acetaminophen [Tylenol Extra 1,000 mg PO Q8 #60 tab 07/14/19 Rx Strength] aspirin [Ecotrin Low Strength] 81 mg PO BID #60 tab 02/04/19 Rx oxycodone 5 - 10 mg PO .Q4H-6H PRN #30 tab 02/04/19 Rx MDD 6 celecoxib [Celebrex] 200 mg PO BID #30 cap 02/05/19 Rx Patient History Medical History Syncope (Acute) Anemia Cardiomyopathy due to chemotherapy Diabetes mellitus, type 2 NIDDM Hiatal hernia Hx of non-Hodgkin's lymphoma SPINAL S/P CHEMO/RADIATION; RECURRENCE S/P CHEMO; "IN REMISSION" Osteoarthritis Heartburn CONTROLLED ON PPI Obesity Surgical History History of arthroplasty of right knee (Acute) 02/02/[address] Reid - [facility] History of X2 History of back surgery NO HARDWARE PER PATIENT History of partial hysterectomy Hx of cholecystectomy History of esophagogastroduodenoscopy (EGD) Family History Father Family history of diabetes mellitus Brother Family history of diabetes mellitus Sister Family history of diabetes mellitus Social History Preferred Language: Maori Communication Ability: Effective Beliefs That Will Affect Care: None marital status: Single Current Living Situation: Alone Other Information That Helps Us Care for You: Yes (LIVES IN TWO HOUSE) Feels Safe at Home: Yes Safety Concerns: Feels Safe At This Time Smoking Status: Never smoker Do You Dip or Chew Tobacco: No Second Hand Exposure: Yes (OCAASIONALLY) Hx Alcohol Use: Yes Hx Substance Use: No Review of Systems Review of Systems: All systems reviewed & are unremarkable except as noted in HPI & below Physical Exam Physical Exam: GENERAL : No acute distress. Appears ill. Appears pale EYES: No icterus, gaze conjugate. Pupils equal round and reactive to light NOSE: No evidence of epistaxis. Nasal cannula in place MOUTH: No lesions or candidiasis. Mucosa dry. NECK: Supple. No appreciation of bruits LUNGS: CTA B/L, no wheezes, rales or rhonchi HEART: Regular, rate controlled. Heart rate in the 70s at the time of my examination ABDOMEN: Soft, NT, ND, BS Present. No tenderness to palpation EXTREMITIES: No LE edema, pedal pulses intact. Dressing intact to right knee. No evidence of bleeding or joint effusion. Mild tenderness to palpation NEURO: A&OX3. No evidence of focal deficit with brief examination. Pupils equal round and reactive to light. No facial droop. No deviation of tongue. Results & Data Vital Signs (Past 12 Hours) Vital Signs Temp Pulse Pulse Resp BP Pulse Ox 02/05/19 15:36 66 148/68 H 100 02/05/19 14:49 37.0 C 85 15 136/73 97 02/05/19 14:26 36.6 C 63 53 L 18 126/73 97 02/05/19 06:50 36.6 C 63 18 126/73 97 Laboratory Results 02/05/19 15:13 02/05/19 15:13 Laboratory Tests 02/05/19 15:13 Magnesium 2.6 H Troponin I < 0.015 TSH 3.960 Diagnostic Findings RIGHT KNEE 2 VIEWS History: Right total knee arthroplasty. Degenerative arthritis. Postop. FINDINGS: The patient is status post a right total knee arthroplasty. The rosemary dware is intact. No fracture or dislocation. Skin nilay and surgical drains are in place. IMPRESSION: Right total knee arthroplasty. No evidence for hardware complication. Electronically signed by: Nicholas Berry M.D. 02/02/2019 12:20 PM ECG Additional Comments: EKG 02/05/2019 at 15:16 Awaiting interpretation. However, T wave inversion in leads 4 V4 V5 and V6 with possible minimal depression as compared to EKG from 01/08/2019. PG Care Time/CCT Total # of Minutes Spent Total Time Spent with Patient: Total time spent is greater than 50% in coordination of care (as documented) at patient's floor/unit and/or counseling patient: Extended time spent with patient and grand daughter as I responded and managed t he code purple (Rapid response). Spent a total of 65 minutes (1) Syncope Syncope type: vasovagal syncope Qualified Code(s): R55 - Syncope and collapse
[2019-02-05] MEDS: POLYETHYLENE (MIRALAX) 17 GM PACK PO SCH (21:02)
[2019-02-05] MEDS: SENNA 8.6 MG TAB PO SCH (21:03)
[2019-02-06] MEDS: OXYCODONE HCL IR 5 MG TAB (IMMEDIATE RELEASE) PO PRN ×2 (03:29→09:29)
[2019-02-06] MEDS: SODIUM CHLORIDE 0.9% 1000ML 1,000 ML IV SCH (04:55)
[2019-02-06] MEDS: ACETAMINOPHEN 500 MG TAB PO SCH ×2 (06:14→15:14)
[2019-02-06 08:12] LABS: Basophils # (auto) 0.01 K/uL (0-0.2); Basophils % (auto) 0.1 %; Eosinophils # (auto) 0.21 K/uL (0-0.5); Eosinophils % (auto) 2.8 %; Hematocrit (blood only) 28.6 % (37-47); Hemoglobin 9.5 g/dL (12.0-16.0); Immature Granulocytes # (auto) 0.02 K/uL (0.00-0.02); Immature Granulocytes % (auto) 0.3 %; Lymphocytes # (auto) 1.62 K/uL (1.2-3.4); Lymphocytes % (auto) 21.9 %; Mean Corpuscular Hgb Conc 33.2 g/dL (32-36); Mean Corpuscular Volume 91.4 fL (80-100); Mean Platelet Volume 9.2 fL (7.4-10.4); Monocytes # (auto) 0.78 K/uL (0.11-0.59); Monocytes % (auto) 10.5 %; Neutrophils # (auto) 4.77 K/uL (1.4-6.5); Neutrophils % (auto) 64.4 %; Platelet Count 174 K/uL (130-400); RDW Coefficient of Variation 13.6 % (11.5-14.5); RDW Standard Deviation 45.2 fL (36.4-46.3); Red Blood Count 3.13 M/uL (4.2-5.4); White Blood Count 7.41 K/uL (4.8-10.8)
[2019-02-06 08:44] LABS: BUN Creatinine Ratio 13.4 (10-20); Blood Urea Nitrogen 14 mg/dl (7-18); Calcium 8.7 mg/dl (8.5-10.1); Carbon Dioxide 27 mmol/L (21-32); Chloride 102 mmol/L (98-107); Creatinine Clr Calc Pharmacy 41.5 ml/min; Est GFR (African American) 59.1; Glucose 117 mg/dl (70-99); Potassium 4.3 mmol/L (3.5-5.1); Sodium 135 mmol/L (136-145)
[2019-02-06 08:49] LABS: Troponin I < 0.015 ng/ml (0-0.045)
[2019-02-06] MEDS: INSULIN ASPART 100 UNITS/ML 3 ML PEN SC SCH ×2 (08:49→13:04)
[2019-02-06] MEDS: FERROUS GLUCONATE 324 MG TAB PO SCH (08:50)
[2019-02-06] MEDS: DOCUSATE SODIUM 100 MG CAP PO SCH (08:50)
[2019-02-06] MEDS: MULTIVITAMIN TAB PO SCH (08:50)
[2019-02-06] MEDS: ASPIRIN 81 MG ECTAB PO SCH (08:50)
[2019-02-06] MEDS: POLYETHYLENE (MIRALAX) 17 GM PACK PO SCH (08:50)
[2019-02-06] MEDS: PANTOprazole 40 MG TAB PO SCH (08:51)
--- NOTE | 2019-02-06 13:46 | Hospitalist Progress Note ---
Date of Service February 06, 2019 Assessment & Plan (1) Syncope: This pt is a 78 yo F here with Rt TKA, now s/p syncope episode while straining to have a BM with constipation. Likely Vasovagal in nature. ECHO without any significant abnormalities ECG with abnormalities but unchanged from previous, troponin neg x 3 Had some mild dehydration also as evidenced by mild hyponatremia and mild elevation in insurance office supervisor both of which are improved now with IVF resuscitation overnight No significant events on telemetry monitoring since that time Orthostatic vitals are negative -continue Miralax daily in the AM to prevent further strain with BMs -no further evaluation needed (2) Nonspecific ST-T wave electrocardiographic changes: as above, negative troponins, ECG serially unchanged, no WMAs on ECHO (3) Diabetes mellitus type 2 in obese: Glimepiride and metformin can be restarted on dc Continue BSG ACHS with sliding scale insulin BSG at time of syncopal event was 160 Continue diabetic diet (4) Status post right knee replacement: POD#[address] Reid No complications at time of surgery EBL 20 mLs Further management per ortho Hgb down to 9.5 now but likely hemodilutional with IVFs given since yesterday -pain control needs rehab ASA 81 bid for DVT proph (5) DVT prophylaxis: aspirin 81 mg p.o. twice daily AURELIANO hose Ambulate as tolerated per orthopedic orders Dispo-medically stable for discharge to rehab Subjective Doing very well today. Denies any lightheadedness or dizziness, even with standing and walking with PT. She denies Cp or SOB, no abd pain. No further BM since yesterday but is urinating. Pain in knee is controlled but states the pain meds make her very drowsy. Tele with NSR, rates 60s-70s Discussed her case with Ortho VIKY Osborne Review of Systems Review of Systems: All systems reviewed & are unremarkable except as noted in HPI & below Physical Exam Constitutional: WD/WN, vitals as above Eyes: PERRL, conjunctivae normal, anicteric sclerae ENMT: external ear and nose normal, oropharynx normal Neck: trachea midline, no thyromegaly Respiratory: normal respiratory effort, lungs clear to auscultation Cardiovascular: RRR, no murmur, no edema Gastrointestinal (Abdomen): normal bowel sounds, soft, nontender, no hepatosplenomegaly Musculoskeletal: Extremities: + extremities abnormal to inspection (right knee with dressing in place with scant dried blood, +ecchymosis ), no cyanosis and no clubbing Skin: no rashes, warm and dry Neurologic: moves all extremities and awake; no focal motor deficits Psychiatric: A+Ox3, euthymic affect Results & Data Vital Signs (Past 12 Hours) Vital Signs Temp Pulse Pulse Pulse Resp BP Pulse Ox 02/06/19 11:04 36.8 C 64 16 114/57 L 93 02/06/19 07:05 36.6 C 68 18 116/50 L 95 02/06/19 03:51 72 02/06/19 03:15 36.9 C 69 17 131/53 L 94 Laboratory Results 02/06/19 02/06/19 02/06/19 Range/Units 10:57 08:06 08:06 WBC 7.41 (4.8-10.8) K/uL RBC 3.13 L (4.2-5.4) M/uL Hgb 9.5 L (12.0-16.0) g/dL Hct 28.6 L (37-47) % MCV 91.4 (80-100) fL MCH 30.4 (25-34) pg MCHC 33.2 (32-36) g/dL RDW Std Deviation 45.2 (36.4-46.3) fL RDW Coeff of Emanuel 13.6 (11.5-14.5) % Plt Count 174 (130-400) K/uL MPV 9.2 (7.4-10.4) fL Immature Gran % (Auto) 0.3 % Neut % (Auto) 64.4 % Lymph % (Auto) 21.9 % [place] % (Auto) 10.5 % Eos % (Auto) 2.8 % Baso % (Auto) 0.1 % Immature Gran # (Auto) 0.02 (0.00-0.02) K/uL Neut # (Auto) 4.77 (1.4-6.5) K/uL Lymph # (Auto) 1.62 (1.2-3.4) K/uL [place] # (Auto) 0.78 H (0.11-0.59) K/uL Eos # (Auto) 0.21 (0-0.5) K/uL Baso # (Auto) 0.01 (0-0.2) K/uL Sodium 135 L (136-145) mmol/L Potassium 4.3 (3.5-5.1) mmol/L Chloride 102 (98-107) mmol/L Carbon Dioxide 27 (21-32) mmol/L Anion Gap 6.0 (3-11) BUN 14 (7-18) mg/dl Creatinine 1.06 (0.6-1.2) mg/dl Est Cr Clr Drug Dosing 41.5 ml/min Est GFR ( Amer) 59.1 Est GFR (Non-Af Amer) 51.0 BUN/Creatinine Ratio 13.4 (10-20) Glucose 117 H (70-99) mg/dl POC Glucose 144 H (70-99) Calcium 8.7 (8.5-10.1) mg/dl Troponin I < 0.015 (0-0.045) ng/ml 02/06/19 02/06/19 Range/Units 07:10 00:20 WBC (4.8-10.8) K/uL RBC (4.2-5.4) M/uL Hgb (12.0-16.0) g/dL Hct (37-47) % MCV (80-100) fL MCH (25-34) pg MCHC (32-36) g/dL RDW Std Deviation (36.4-46.3) fL RDW Coeff of Emanuel (11.5-14.5) % Plt Count (130-400) K/uL MPV (7.4-10.4) fL Immature Gran % (Auto) % Neut % (Auto) % Lymph % (Auto) % [place] % (Auto) % Eos % (Auto) % Baso % (Auto) % Immature Gran # (Auto) (0.00-0.02) K/uL Neut # (Auto) (1.4-6.5) K/uL Lymph # (Auto) (1.2-3.4) K/uL [place] # (Auto) (0.11-0.59) K/uL Eos # (Auto) (0-0.5) K/uL Baso # (Auto) (0-0.2) K/uL Sodium (136-145) mmol/L Potassium (3.5-5.1) mmol/L Chloride (98-107) mmol/L Carbon Dioxide (21-32) mmol/L Anion Gap (3-11) BUN (7-18) mg/dl Creatinine (0.6-1.2) mg/dl Est Cr Clr Drug Dosing ml/min Est GFR ( Amer) Est GFR (Non-Af Amer) BUN/Creatinine Ratio (10-20) Glucose (70-99) mg/dl POC Glucose 117 H (70-99) Calcium (8.5-10.1) mg/dl Troponin I < 0.015 (0-0.045) ng/ml PG Care Time/CCT Total # of Minutes Spent Total Time Spent with Patient: Total time spent is greater than 50% in coordination of care (as documented) at patient's floor/unit and/or counseling patient: (1) Syncope Syncope type: vasovagal syncope Qualified Code(s): R55 - Syncope and collapse
--- NOTE | 2019-02-06 13:59 | Orthopedic Progress Note ---
Date of Service February 06, 2019 Assessment & Plan (1) Status post right knee replacement: 78 yo female stable POD #4 s/p right TKA Transfer to Med ICU to r/o Cardiac event - stable. [place] to be Vasovagal rxn. Discussed case with . Ok for discharge to [facility] 1. Med management 2. DVT prophylaxis- ASA, SCDs 3. PT/OT 4. D/C planning- referral made to [facility] rehab pending insurance approval. Subjective Pt was taken to Medical ICU last night after having a vasovagal reaction while in the bathroom. Pt was sent down to r/o cardiac event, etc. Today, she is doing well. No new complaints. Having pain in the knee which is controlled fairly well. No CP,SOB,LH. Dr Keller informed me that the patient is stable and was felt to be due to Vasovagal rxn while bearing down to have a BM. No cardiac event noted; Pt has done her PT/OT today and feels she is progressing well. Physical Exam Physical Exam: Corrine dressing intact with scant drainage. Mild bruising noted around the patella and is tender on palpation. No other bruising noted. Calves soft, NT. Knee swollen but not tense. NV intact. Toes mobile. Results & Data Vital Signs (Past 12 Hours) Vital Signs Temp Pulse Pulse Pulse Resp BP Pulse Ox 02/06/19 11:04 36.8 C 64 16 114/57 L 93 02/06/19 07:05 36.6 C 68 18 116/50 L 95 02/06/19 03:51 72 02/06/19 03:15 36.9 C 69 17 131/53 L 94
--- NOTE | 2019-02-10 19:08 | Discharge Summary ---
DISCHARGE DIAGNOSIS: Degenerative joint disease, right knee. SECONDARY DIAGNOSES: Diabetes mellitus type 2, gastroesophageal reflux disease, history of non-Hodgkin lymphoma, obesity, osteoarthritis. CONSULTATIONS: Kevin Ramirez PA-C /Emily Keller MD. COMPLICATIONS: Vasovagal reaction on 02/05/2019. BRIEF HISTORY: As dictated in the history and physical. HOSPITAL SUMMARY: The patient was admitted on the above-noted date and had the above-noted surgery performed, which she tolerated well. On her first postoperative day, she was resting in bed. Pain was controlled. She had no complaints. Toes were mobile. Neurovascularly intact. Dressings and drain were in place, GONZALES dressing was functioning. Vital signs were stable and she was afebrile. Hemoglobin was 10.6. She was started on physical therapy protocol and continued on DVT prophylaxis and pain management. By her second postoperative day, she was resting in bed. Pain was controlled and she had no complaints. GONZALES dressing was in place. Toes were mobile. Neurovascularly intact. She was nontender and she was remaining afebrile. Vital signs were stable. She was continued on her PT protocol and a referral for [facility] [place] [place], but would not likely be approved until the following Tuesday. By 02/05/2019, she continued to remain stable and her dressings remained stable and in place. No erythema, no drainage, no calf tenderness. Toes were mobile and she was continued on her protocol. Later that afternoon, the patient was in the bathroom and apparently had a vagal event. EKG showed nonspecific ST changes and an echocardiogram was ordered and troponins at that point were negative and planned to trend the troponins at that point in time and transfer the patient to a monitored bed. By the following morning, the patient had been ruled out for any kind of a cardiac event and it was felt to be vasovagal. She had no new complaints and she was doing well. She was having some pain in the knee, which was controlled. GONZALES dressing was intact with scant drainage. She had mild bruising noted around the patella. Calves were soft and nontender. Knee was swollen, neurovascularly intact. Toes were mobile. I had spoken to Dr. Keller about her status and the patient was medically cleared for discharge. She was progressing with her PT and it was felt that she could be discharged to home on 02/06/2019. For further review, please see chart. LABORATORY AND X-RAY DATA: As per chart. DISCHARGE INSTRUCTIONS: The patient was discharged home in satisfactory condition on 02/06/2019. DIET: Diabetic. ACTIVITY: Weightbearing as tolerated on the affected extremity. Follow TKA instruction sheets and special care instructions as noted. Follow up with Dr. Reid in 2 weeks. The patient to call for appointment if one has not been made for you. DISCHARGE MEDICATIONS: Acetaminophen 1000 mg p.o. q.8 hours, aspirin 81 mg p.o. b.i.d., oxycodone 5-10 mg p.o. q.4-6 hours p.r.n. MiraLax 17 g p.o. daily and sennosides 17.2 mg p.o. at bedtime. Resume home meds as listed.
== END 2019-02-06 15:30 | DRG 470 ==
LOC: ASU 08:02 → 3E 11:43 → 2E 02-05 15:45
DX: R55 Syncope and collapse; E87.1 Hypo-osmolality and hyponatremia; E66.9 Obesity, unspecified; M21.861 Other specified acquired deformities of right lower leg; E86.0 Dehydration; E11.9 Type 2 diabetes mellitus without complications; M87.9 Osteonecrosis, unspecified; Z79.84 Long term (current) use of oral hypoglycemic drugs; M17.11 Unilateral primary osteoarthritis, right knee; Z88.5 Allergy status to narcotic agent; K59.00 Constipation, unspecified; Z85.72 Personal history of non-Hodgkin lymphomas; Z68.33 Body mass index [BMI] 33.0-33.9, adult; Z83.3 Family history of diabetes mellitus; Z79.899 Other long term (current) drug therapy; K21.9 Gastro-esophageal reflux disease without esophagitis